=== PATIENT | female | born 1980 | race Caucasian/White ===

== ENCOUNTER 2020-03-20 03:05 | Emergency (ER) | payer OTHER, SELFPAY ==
[~2020-03-20] VITALS: Ht 177.8 cm; Wt 150.0 kg
[2020-03-20 03:08] VITALS: BP 158/83
[2020-03-20] MEDS ORDERED: HYDROcodone/APAP 5/325 TABLET PO ONE (03:30)
[2020-03-20] MEDS ORDERED: PLEASE ENTER ALLERGIES MC SCH (03:30)
[2020-03-20] MEDS ORDERED: HYDROcodone/APAP 5/325 TABLET ONE (03:58)
== END 2020-03-20 05:01 | disposition home or self-care (01) ==
LOC: ED 04:20
DX: S82.832A Other fracture of upper and lower end of left fibula, initial encounter for closed fracture (principal); I10 Essential (primary) hypertension; E11.9 Type 2 diabetes mellitus without complications; W01.0XXA Fall on same level from slipping, tripping and stumbling without subsequent striking against object, initial encounter; Y93.89 Activity, other specified; Y92.009 Unspecified place in unspecified non-institutional (private) residence as the place of occurrence of the external cause; Y99.8 Other external cause status
CPT/HCPCS: 29515; 99283

== ENCOUNTER 2020-03-31 05:16 | Day surgery (SDC) | payer OTHER ==
[~2020-03-31] VITALS: Ht 177.8 cm; Wt 176.3 kg
[2020-03-31] MEDS ORDERED: BUPIVACAINE/PF 0.5% ONE (06:24)
[2020-03-31] MEDS ORDERED: LIDOCAINE/PF 1%, 30ML ONE (06:24)
[2020-03-31] MEDS ORDERED: ATOR40TA78 PO (06:25)
[2020-03-31] MEDS ORDERED: PIOG1TAB38 PO (06:25)
[2020-03-31] MEDS ORDERED: METF500T17 PO (06:25)
[2020-03-31] MEDS ORDERED: GABA300C PO (06:25)
[2020-03-31] MEDS ORDERED: LOSA50TA14 PO (06:25)
[2020-03-31] MEDS ORDERED: SITA100T PO (06:25)
[2020-03-31] MEDS ORDERED: OMEP-110 PO (06:25)
[2020-03-31] MEDS ORDERED: LACTATED RINGERS 1,000 ML IV SCH (06:30)
[2020-03-31] MEDS ORDERED: CHLORHEXIDINE 15 ML UDC MM ONE (06:30)
[2020-03-31] MEDS ORDERED: FENTANYL PF 100 MCG/2ML ONE ×2 (06:46→08:22)
[2020-03-31] MEDS ORDERED: MIDAZOLAM 1 MG/ML, 2ML ONE (06:46)
[2020-03-31 07:00] VITALS: BP 158/100
[2020-03-31] MEDS ORDERED: DEXAMETHASONE 4 MG/ML, 1ML ONE (07:12)
[2020-03-31] MEDS ORDERED: KETOROLAC 30 MG/1 ML ONE (07:12)
[2020-03-31] MEDS ORDERED: LORazepam 2 MG/ML, 1ML IVPush PRN (08:00)
[2020-03-31] MEDS ORDERED: ALBUTEROL SULFATE 2.5 MG/3 ML NPPB PRN (08:00)
[2020-03-31] MEDS ORDERED: LABETALOL 5MG/ML, 20ML IV PRN (08:00)
[2020-03-31] MEDS ORDERED: MEPERIDINE/PF 25MG/0.5ML IVPush PRN (08:00)
[2020-03-31] MEDS ORDERED: OXYcodone 5 MG/5 ML ORAL.SOL UDC PO PRN (08:00)
[2020-03-31] MEDS ORDERED: HYDROmorphone 1 MG/ML, 1ML INJ IVPush PRN (08:00)
[2020-03-31] MEDS ORDERED: hydrALAzine 20 MG/ML, 1ML IV PRN (08:00)
[2020-03-31] MEDS ORDERED: ACETAMINOPHEN 325 MG TABLET PO PRN (08:00)
[2020-03-31] MEDS ORDERED: PROMETHAZINE 25 MG/ML, 1ML IVPush PRN (08:00)
[2020-03-31] MEDS ORDERED: PROMETHAZINE 25 MG/ML, 1ML ONE (08:22)
[2020-03-31] MEDS: FENTANYL PF 100 MCG/2ML IV PRN ×2 (08:30→08:44)
[2020-03-31] MEDS ORDERED: CEFAZOLIN 1,000 MG ONE (08:31)
[2020-03-31] MEDS ORDERED: ONDANSETRON 2MG/ML, 2ML ONE (08:31)
[2020-03-31] MEDS ORDERED: PROPOFOL 10 MG/ML, 20ML ONE (08:31)
[2020-03-31] MEDS ORDERED: ACETAMINOPHEN 650 MG/20.3 ML UDC ONE (08:49)
[2020-03-31] MEDS ORDERED: OXYcodone 5 MG/5 ML ORAL.SOL UDC ONE (08:49)
== END 2020-03-31 10:30 | disposition home or self-care (01) ==
LOC: OUT 05:16
PROVIDERS: ATTEND Orthopaedic Surgery
DX: S82.62XA Displaced fracture of lateral malleolus of left fibula, initial encounter for closed fracture (principal); K21.9 Gastro-esophageal reflux disease without esophagitis; I10 Essential (primary) hypertension; E11.9 Type 2 diabetes mellitus without complications; E66.01 Morbid (severe) obesity due to excess calories; Z68.43 Body mass index [BMI] 50.0-59.9, adult; X58.XXXA Exposure to other specified factors, initial encounter; Y93.89 Activity, other specified; Y92.89 Other specified places as the place of occurrence of the external cause; Y99.8 Other external cause status; Z20.828 Contact with and (suspected) exposure to other viral communicable diseases; Z88.0 Allergy status to penicillin; Z88.1 Allergy status to other antibiotic agents; Z79.899 Other long term (current) drug therapy; Z72.89 Other problems related to lifestyle
CPT/HCPCS: 27792; 73610; 81025; 82962; C1713; J0690; J1100; J1885; J2250; J2405; J2550; J2704; J3010; J7120; U0003; 76000

== ENCOUNTER → 2020-06-01 | Outpatient (CLI) | payer OTHER ==
[~2020-06-01] MED LIST: ATOR40TA78 PO; GABA300C PO; LOSA50TA14 PO; METF500T17 PO; OMEP-110 PO; PIOG1TAB38 PO; SITA100T PO
== END | disposition home or self-care (01) ==
LOC: WOUND 07:50
PROVIDERS: ATTEND Internal Medicine
DX: T81.32XA Disruption of internal operation (surgical) wound, not elsewhere classified, initial encounter (principal); E11.628 Type 2 diabetes mellitus with other skin complications; I10 Essential (primary) hypertension; E66.01 Morbid (severe) obesity due to excess calories; E78.5 Hyperlipidemia, unspecified; Z88.0 Allergy status to penicillin; Z68.42 Body mass index [BMI] 45.0-49.9, adult; Y83.8 Other surgical procedures as the cause of abnormal reaction of the patient, or of later complication, without mention of misadventure at the time of the procedure
CPT/HCPCS: 97597; 99214

== ENCOUNTER 2020-06-15 09:03 | Outpatient (CLI) | payer OTHER | END 2020-06-15 23:59 | disposition home or self-care (01) | LOC: WOUND 09:03 | PROVIDERS: ATTEND Internal Medicine | DX: T81.32XD Disruption of internal operation (surgical) wound, not elsewhere classified, subsequent encounter (principal); E11.628 Type 2 diabetes mellitus with other skin complications; I10 Essential (primary) hypertension; E66.01 Morbid (severe) obesity due to excess calories; E78.5 Hyperlipidemia, unspecified; Z88.0 Allergy status to penicillin; Z68.42 Body mass index [BMI] 45.0-49.9, adult; Y83.8 Other surgical procedures as the cause of abnormal reaction of the patient, or of later complication, without mention of misadventure at the time of the procedure | CPT/HCPCS: 97597 ==

== ENCOUNTER 2020-06-29 08:53 | Outpatient (CLI) | payer OTHER | END 2020-06-29 23:59 | disposition home or self-care (01) | LOC: WOUND 08:53 | PROVIDERS: ATTEND Internal Medicine | DX: T81.32XD Disruption of internal operation (surgical) wound, not elsewhere classified, subsequent encounter (principal); E11.628 Type 2 diabetes mellitus with other skin complications; I10 Essential (primary) hypertension; E66.01 Morbid (severe) obesity due to excess calories; E78.5 Hyperlipidemia, unspecified; Z88.0 Allergy status to penicillin; Z68.42 Body mass index [BMI] 45.0-49.9, adult; Y83.8 Other surgical procedures as the cause of abnormal reaction of the patient, or of later complication, without mention of misadventure at the time of the procedure | CPT/HCPCS: 97597 ==

== ENCOUNTER → 2020-07-06 | Outpatient (CLI) | payer OTHER | END | disposition home or self-care (01) | LOC: WOUND 09:33 | PROVIDERS: ATTEND Internal Medicine | DX: T81.32XD Disruption of internal operation (surgical) wound, not elsewhere classified, subsequent encounter (principal); E11.628 Type 2 diabetes mellitus with other skin complications; I10 Essential (primary) hypertension; E66.01 Morbid (severe) obesity due to excess calories; E78.5 Hyperlipidemia, unspecified; Z88.0 Allergy status to penicillin; Z68.42 Body mass index [BMI] 45.0-49.9, adult; Y83.8 Other surgical procedures as the cause of abnormal reaction of the patient, or of later complication, without mention of misadventure at the time of the procedure | CPT/HCPCS: 17250 ==

== ENCOUNTER → 2020-07-20 | Outpatient (CLI) | payer OTHER | END | disposition home or self-care (01) | LOC: WOUND 09:15 | PROVIDERS: ATTEND Internal Medicine | DX: T81.32XD Disruption of internal operation (surgical) wound, not elsewhere classified, subsequent encounter (principal); E11.628 Type 2 diabetes mellitus with other skin complications; I10 Essential (primary) hypertension; E66.01 Morbid (severe) obesity due to excess calories; E78.5 Hyperlipidemia, unspecified; Z88.0 Allergy status to penicillin; Z68.42 Body mass index [BMI] 45.0-49.9, adult; Y83.8 Other surgical procedures as the cause of abnormal reaction of the patient, or of later complication, without mention of misadventure at the time of the procedure | CPT/HCPCS: 97597 ==

== ENCOUNTER → 2020-08-03 | Outpatient (CLI) | payer OTHER | END | disposition home or self-care (01) | LOC: WOUND 09:00 | PROVIDERS: ATTEND Internal Medicine | DX: T81.32XD Disruption of internal operation (surgical) wound, not elsewhere classified, subsequent encounter (principal); E11.628 Type 2 diabetes mellitus with other skin complications; I10 Essential (primary) hypertension; E66.01 Morbid (severe) obesity due to excess calories; E78.5 Hyperlipidemia, unspecified; Z88.0 Allergy status to penicillin; Z68.42 Body mass index [BMI] 45.0-49.9, adult; Y83.8 Other surgical procedures as the cause of abnormal reaction of the patient, or of later complication, without mention of misadventure at the time of the procedure | CPT/HCPCS: 97597 ==